=== PATIENT | female | born 1990 | race Caucasian/White ===

== ENCOUNTER 2019-05-26 16:21 | Emergency (ER) | payer BC ==
[2019-05-26 16:46] VITALS: BP 127/86
--- NOTE | 2019-05-26 16:49 | ER Document Report ---
ED Medical Screen (RME) - General Chief Complaint: Chest Pain Stated Complaint: CHEST PAIN/ARM/NECK PAIN Time Seen by Provider: 05/26/19 16:35 Notes: Patient is a 28-year-old female who presents to the emergency department with a chief complaint of chest pain. Patient states that her chest pain started 3 days ago. States that the pain is in the middle of her chest and it radiated down her left arm and into her neck. She has had this before and was told it was due to her anxiety. This is the first time her pain had radiated to her neck. Patient is currently on metoprolol. She states that this morning she woke up and her blood pressure was high. It was 155/109 and her heart rate was in the 160 as per patient's report. He is currently on metoprolol and clonazepam. Patient states that when she saw her blood pressure and heart rate was up, she ended up taking her metoprolol. She noticed that her weight was still high and then she ended up taking her clonazepam. Patient was also recently diagnosed with a urinary tract infection. She is currently on Augmentin. Denies any abdominal pain. Exam: Sinus rhythm on twelve-lead EKG. S1, S2. I have greeted and performed a rapid initial assessment of this patient. A comprehensive ED assessment and evaluation of the patient, analysis of test results and completion of medical decision making process will be conducted by an additional ED providers. - Related Data Allergies/Adverse Reactions: ciprofloxacin [From Cipro] Allergy (Verified 05/26/19 16:35) metoclopramide [From Reglan] Allergy (Verified 05/26/19 16:35) Sulfa (Sulfonamide Antibiotics) Allergy (Verified 05/26/19 16:35) Physical Exam - Vital signs Vitals: Temp Pulse Resp BP Pulse Ox 97.9 F 92 16 127/86 H 100 05/26/19 16:42 05/26/19 16:42 05/26/19 16:42 05/26/19 16:42 05/26/19 16:42 Course - Vital Signs Vital signs: Temp Pulse Resp BP Pulse Ox 97.9 F 92 16 127/86 H 100 05/26/19 16:42 05/26/19 16:42 05/26/19 16:42 05/26/19 16:42 05/26/19 16:42
--- NOTE | 2019-05-26 17:01 | RADIOLOGY REPORT (SQ) ---
EXAM DESCRIPTION: CHEST SINGLE VIEW COMPLETED DATE/TIME: 05/26/2019 4:53 pm REASON FOR STUDY: chest pain COMPARISON: None. EXAM PARAMETERS: NUMBER OF VIEWS: One view. TECHNIQUE: Single frontal radiographic view of the chest acquired. RADIATION DOSE: NA LIMITATIONS: None. FINDINGS: LUNGS AND PLEURA: No opacities, masses or pneumothorax. No pleural effusion. MEDIASTINUM AND HILAR STRUCTURES: No masses. Contour normal. HEART AND VASCULAR STRUCTURES: Heart normal in size. Normal vasculature. BONES: No acute findings. HARDWARE: None in the chest. OTHER: No other significant finding. IMPRESSION: NO ACUTE RADIOGRAPHIC FINDING IN THE CHEST. TECHNICAL DOCUMENTATION: JOB ID: [id number] [employer]- All Rights Reserved Reading location - IP/workstation name: [email or web address]
[2019-05-26 17:17] LABS: ABSOLUTE BASOPHILS # (AUTO) 0.1 10^3/uL (0.0-0.2); ABSOLUTE EOSINOPHILS # (AUTO) 0.1 10^3/uL (0.0-0.6); ABSOLUTE MONOCYTES (AUTO) 0.9 10^3/uL (0.1-1.4); ABSOLUTE NEUT (AUTO) 6.3 10^3/uL (1.7-8.2); BASOPHILS % (AUTO) 0.9 % (0-2); EOSINOPHILS % (AUTO) 0.6 % (0-6); HEMATOCRIT 41.3 % (36.0-47.0); HEMOGLOBIN 14.2 g/dL (12.0-15.5); LYMPHOCYTES % (AUTO) 21.1 % (13-45); MEAN CORPUSCULAR HEMOGLOBIN 31.2 pg (27.0-33.4); MEAN CORPUSCULAR HGB CONC 34.3 g/dL (32.0-36.0); MEAN CORPUSCULAR VOLUME 91 fl (80-97); MONOCYTES % (AUTO) 9.6 % (3-13); PLATELET COUNT 395 10^3/uL (150-450); RED BLOOD COUNT 4.54 10^6/uL (3.72-5.28); RED CELL DISTRIBUTION WIDTH 13.4 % (11.5-14.0); SEGMENTED NEUTROPHILS % (AUTO) 67.8 % (42-78); TOTAL CELLS COUNTED % (AUTO) 100 %; WHITE BLOOD COUNT 9.3 10^3/uL (4.0-10.5)
[2019-05-26 17:46] LABS: ALBUMIN 4.9 g/dL (3.5-5.0); ALKALINE PHOSPHATASE 63 U/L (38-126); ANION GAP 17 (5-19); ASPARTATE AMINO TRANSFERASE 25 U/L (14-36); BILIRUBIN,DIRECT 0.1 mg/dL (0.0-0.4); BILIRUBIN,TOTAL 0.7 mg/dL (0.2-1.3); BLOOD UREA NITROGEN 11 mg/dL (7-20); CALCIUM 9.7 mg/dL (8.4-10.2); CARBON DIOXIDE 21 mmol/L (22-30); CHLORIDE 100 mmol/L (98-107); CREATINE KINASE 372 U/L (30-135); GLUCOSE 101 mg/dL (75-110); POTASSIUM 4.2 mmol/L (3.6-5.0); TOTAL PROTEIN 8.7 g/dL (6.3-8.2)
[2019-05-26 18:09] LABS: APPEARANCE,URINE SLIGHTLY-CLOUDY; BILIRUBIN,URINE NEGATIVE (NEGATIVE); COLOR,URINE STRAW; GLUCOSE, URINE NEGATIVE (NEGATIVE); KETONES,URINE 20 mg/dL (NEGATIVE); LEUKOCYTE ESTERASE,URINE NEGATIVE (NEGATIVE); NITRITE,URINE NEGATIVE (NEGATIVE); PROTEIN,URINE NEGATIVE (NEGATIVE); URINE SPECIFIC GRAVITY 1.006; UROBILINOGEN,URINE NEGATIVE mg/dL (<2.0)
--- NOTE | 2019-05-26 18:22 | ER Document Report ---
ED General - General Chief Complaint: Chest Pain Stated Complaint: CHEST PAIN/ARM/NECK PAIN Time Seen by Provider: 05/26/19 16:35 Primary Care Provider: CHI STRICKLAND [Primary Care Provider] - Follow up as needed - HPI Notes: This is a 28-year-old female with a history of mitral valve prolapse which was diagnosed a little over a year ago in which is associated with occasional sharp anterior chest pain. Patient has been relatively free of symptoms for over 6 months and is taking clonazepam and also is on 25 mg of metoprolol twice a day. Within last several days she says some fleeting sharp pain in her left arm radiating into her left shoulder and neck lasting for a few seconds at a time. This is not associated with exertion. No associated diaphoresis, dyspnea, nausea or vomiting. Patient was completely worked up within the last year by a harness tier at [facility] Dr. Carmela Crum who did an echocardiogram and a full evaluation. She is advised the patient that she has minimal mitral prolapse with no evidence of more serious cardiac disease and suggest symptomatic management only. Patient is a non-smoker. She denies any use of cocaine. She has no history of hyperlipidemia, hypertension or diabetes mellitus. 2 elderly family members are known to have coronary disease. HEART Score: HISTORY 0 ECG 0 AGE 0 RISK FACTORS 1 TROPONIN 0 TOTAL: 1 If HEART score is = 3 AND both tronponin measurments are normal, the 30 day risk of a major adverse cardiac event (all-cause mortality, myocardia infarction or need for coronary revscularization) is < 1% (Sensitivity 100%, NPV 100%). - Related Data Allergies/Adverse Reactions: ciprofloxacin [From Cipro] Allergy (Verified 05/26/19 16:35) metoclopramide [From Reglan] Allergy (Verified 05/26/19 16:35) Sulfa (Sulfonamide Antibiotics) Allergy (Verified 05/26/19 16:35) Past Medical History - General Information source: Patient - Social History Smoking Status: Never Smoker Family History: Reviewed & Not Pertinent Patient has suicidal ideation: No Patient has homicidal ideation: No - Past Medical History Cardiac Medical History: Reports: Other - Mitral valve prolapse Review of Systems - Review of Systems Notes: Constitutional: Negative for fever. HENT: Negative for sore throat. Eyes: Negative for visual changes. Cardiovascular: As per HPI. Respiratory: Negative for shortness of breath. Gastrointestinal: Negative for abdominal pain, vomiting or diarrhea. Genitourinary: Negative for dysuria. Musculoskeletal: Negative for back pain. Skin: Negative for rash. Neurological: Negative for headaches, weakness or numbness. 10 point ROS negative except as marked above and in HPI. Physical Exam - Vital signs Vitals: Temp Pulse Resp BP Pulse Ox 97.9 F 92 16 127/86 H 100 05/26/19 16:42 05/26/19 16:42 05/26/19 16:42 05/26/19 16:42 05/26/19 16:42 Notes: GENERAL: Slender female patient approximately stated age appearing in no acute distress. SKIN: Good turgor no rashes. HEAD: Normocephalic atraumatic. EYES: PERRLA. Conjunctivae and sclerae clear. EARS: CANALS AND TMS CLEAR. NOSE: CLEAR. MOUTH: Moist mucosa. Good dentition. No stridor or edema. No drooling. NECK: Supple. No masses or thyromegaly. No adenopathy. Carotids 2+ without bruits. No JVD. BACK: Symmetrical without tenderness. CHEST: Respirations unlabored. Breath sounds clear and symmetrical. HEART: Regular rhythm. No murmur gallop or rub. ABDOMEN: Soft nontender without masses, organomegaly or rebound. Bowel sounds normally active. No bruits. GENITALIA: Deferred. EXTREMITIES: No edema. No calf tenderness. Cap refill less than 1.5 seconds. Dorsalis pedis and posterior tibial pulses 3+ and symmetrical. NEUROLOGICAL: GCS 15. Alert and oriented x3. Normal gait. Fluent speech. Cranial nerves II through XII intact. Sensorimotor and cerebellar normal. Normal tone. Course - Re-evaluation Re-evalutation: Normal troponin level here. Normal chest x-ray. Normal exam. EKG shows no acute changes. Patient has had a full cardiac work-up within the last 1 year and is known to have mitral prolapse which is being treated appropriately with medication and she is being followed by harness tier Dr. Carmela Crum. Patient is been reassured today is encouraged to follow-up with Dr. Crum. 05/26/19 18:58 - Vital Signs Vital signs: Temp Pulse Resp BP Pulse Ox 97.9 F 92 16 127/86 H 100 05/26/19 16:42 05/26/19 16:42 05/26/19 16:42 05/26/19 16:42 05/26/19 16:42 - Laboratory Result Diagrams: 05/26/19 16:55 05/26/19 16:55 Laboratory results interpreted by me: 05/26/19 05/26/19 16:55 17:40 Carbon Dioxide 21 L Creatine Kinase 372 H Total Protein 8.7 H Urine Ketones 20 H - EKG Interpretation by Me EKG shows normal: Sinus rhythm Rate: Normal Rhythm: NSR - Normal tracing Discharge - Discharge Clinical Impression: Mitral valve prolapse Chest pain Qualifiers: Chest pain type: unspecified Qualified Code(s): R07.9 - Chest pain, unspecified Condition: Stable Disposition: HOME, SELF-CARE Additional Instructions: Mitral Valve Prolapse Mitral valve prolapse is very common, affecting about 1 in 25 people. The mitral valve controls blood flow between the left atrium (upper chamber) and left ventricle of the heart. In mitral prolapse, the valve bulges back into the atrium when the ventricle contracts. Usually, mitral valve prolapse causes no symptoms, and requires no treatment. But some people with mitral prolapse have chest pain, palpitations, lightheadedness, or fatigue. In many of these cases, it's not really clear if the mitral prolapse is causing these symptoms. Mitral prolapse is diagnosed by an echocardiogram. If mitral prolapse is severe, or accompanied by mitral regurgitation (backflow of blood), the valve can be prone to infection. Infection of a heart valve is called endocarditis. The infection can start during dental or surgical procedures. Most patients with significant mitral prolapse should take antibiotics before procedures. If mitral prolapse is causing symptoms, medication can be prescribed. Most patients do not need any treatment at all. Call the doctor or return if you develop persistent palpitation, severe chest pain, fainting or severe dizziness, or any other significant change in your health. Return here as needed for new or worsening symptoms. Follow-up with Dr. Carmela Crum (cardiology). Continue your current medications as previously instructed. Referrals: CHI STRICKLAND [Primary Care Provider] - Follow up as needed
[2019-05-26 18:25] LABS: URINE AMPHETAMINES SCREEN NEGATIVE; URINE BARBITURATES SCREEN NEGATIVE; URINE BENZODIAZEPINES SCREEN NEGATIVE; URINE COCAINE SCREEN NEGATIVE; URINE MARIJUANA (THC) SCREEN NEGATIVE; URINE METHADONE SCREEN NEGATIVE; URINE PHENCYCLIDINE SCREEN NEGATIVE
--- NOTE | 2019-05-26 22:40 | EKG REPORT ---
SEVERITY:- NORMAL ECG - SINUS RHYTHM : Confirmed by: Bimal Allison MD 26-May-2019 22:39:48
== END 2019-05-26 19:08 | disposition home or self-care (01) ==
LOC: ER 16:21
DX: R07.9 Chest pain, unspecified (principal); I34.1 Nonrheumatic mitral (valve) prolapse; M79.602 Pain in left arm; Z79.899 Other long term (current) drug therapy; Z82.49 Family history of ischemic heart disease and other diseases of the circulatory system; Z88.1 Allergy status to other antibiotic agents; Z88.8 Allergy status to other drugs, medicaments and biological substances; Z88.2 Allergy status to sulfonamides
CPT/HCPCS: 36415; 71045; 80053; 80307; 81001; 81025; 82550; 84484; 85025; 85379; 93005; 93010; 99285

== ENCOUNTER 2019-08-22 16:04 | Emergency (ER) | payer BC, OTHER ==
--- NOTE | 2019-08-22 16:33 | ER Document Report ---
ED Medical Screen (RME) - General Chief Complaint: Chest Pain Stated Complaint: CHEST PAIN Time Seen by Provider: 08/22/19 16:29 Primary Care Provider: CHI STRICKLAND [Primary Care Provider] - Follow up as needed Notes: 28-year-old female with history of tachycardia presents for chest tightness with radiation into her shoulder for the past 3 days. Associated dyspnea. Lungs clear to auscultation bilaterally. Mild tachycardia. Patient states she flew to [place] a couple weeks ago. Denies control use, personal history of cancer, recent hospitalizations, recent surgeries. I have greeted and performed a rapid initial assessment of this patient. A comprehensive ED assessment and evaluation of the patient, analysis of test results and completion of the medical decision making process with be conducted by additional ED providers. TRAVEL OUTSIDE OF THE [place] IN LAST 30 DAYS: No - Related Data Allergies/Adverse Reactions: ciprofloxacin [From Cipro] Allergy (Verified 08/22/19 16:25) metoclopramide [From Reglan] Allergy (Verified 08/22/19 16:25) Sulfa (Sulfonamide Antibiotics) Allergy (Verified 08/22/19 16:25) Past Medical History - Social History Chew tobacco use (# tins/day): No Frequency of alcohol use: None Drug Abuse: None Physical Exam - Vital signs Vitals: Temp Pulse Resp BP Pulse Ox 98.4 F 115 H 18 140/82 H 100 08/22/19 16:15 08/22/19 16:15 08/22/19 16:15 08/22/19 16:15 08/22/19 16:15 Course - Vital Signs Vital signs: Temp Pulse Resp BP Pulse Ox 98.4 F 115 H 18 140/82 H 100 08/22/19 16:15 08/22/19 16:15 08/22/19 16:15 08/22/19 16:15 08/22/19 16:15 Doctor's Discharge - Discharge Referrals: CHI STRICKLAND [Primary Care Provider] - Follow up as needed
[2019-08-22 17:02] LABS: ABSOLUTE EOSINOPHILS # (AUTO) 0.1 10^3/uL (0.0-0.6); ABSOLUTE LYMPHOCYTES (AUTO) 2.4 10^3/uL (0.5-4.7); ABSOLUTE MONOCYTES (AUTO) 0.9 10^3/uL (0.1-1.4); ABSOLUTE NEUT (AUTO) 6.5 10^3/uL (1.7-8.2); BASOPHILS % (AUTO) 0.5 % (0-2); EOSINOPHILS % (AUTO) 0.7 % (0-6); HEMATOCRIT 43.4 % (36.0-47.0); HEMOGLOBIN 14.7 g/dL (12.0-15.5); LYMPHOCYTES % (AUTO) 24.4 % (13-45); MEAN CORPUSCULAR HGB CONC 33.8 g/dL (32.0-36.0); MEAN CORPUSCULAR VOLUME 92 fl (80-97); MONOCYTES % (AUTO) 9.3 % (3-13); RED BLOOD COUNT 4.75 10^6/uL (3.72-5.28); SEGMENTED NEUTROPHILS % (AUTO) 65.1 % (42-78); TOTAL CELLS COUNTED % (AUTO) 100 %
[2019-08-22 17:08] LABS: APPEARANCE,URINE SLIGHTLY-CLOUDY; BILIRUBIN,URINE NEGATIVE (NEGATIVE); COLOR,URINE YELLOW; GLUCOSE, URINE NEGATIVE (NEGATIVE); KETONES,URINE 20 mg/dL (NEGATIVE); PROTEIN,URINE NEGATIVE (NEGATIVE); URINE SPECIFIC GRAVITY 1.024; UROBILINOGEN,URINE NEGATIVE mg/dL (<2.0)
[2019-08-22 17:17] LABS: ALBUMIN 5.1 g/dL (3.5-5.0); ALKALINE PHOSPHATASE 61 U/L (38-126); ANION GAP 15 (5-19); ASPARTATE AMINO TRANSFERASE 20 U/L (14-36); BILIRUBIN,DIRECT 0.2 mg/dL (0.0-0.4); BILIRUBIN,TOTAL 1.2 mg/dL (0.2-1.3); BLOOD UREA NITROGEN 12 mg/dL (7-20); CALCIUM 9.6 mg/dL (8.4-10.2); CARBON DIOXIDE 23 mmol/L (22-30); CHLORIDE 101 mmol/L (98-107); GLUCOSE 82 mg/dL (75-110); POTASSIUM 3.7 mmol/L (3.6-5.0); TOTAL PROTEIN 8.8 g/dL (6.3-8.2)
--- NOTE | 2019-08-22 17:25 | RADIOLOGY REPORT (SQ) ---
EXAM DESCRIPTION: CHEST 2 VIEWS COMPLETED DATE/TIME: 08/22/2019 5:15 pm REASON FOR STUDY: CHEST PAIN COMPARISON: 05/26/2019 TECHNIQUE: Frontal and lateral radiographic views of the chest acquired. NUMBER OF VIEWS: Two view. LIMITATIONS: None. FINDINGS: LUNGS AND PLEURA: No pneumothorax. No consolidation or pleural effusion. MEDIASTINUM AND HILAR STRUCTURES: Stable. HEART AND VASCULAR STRUCTURES: Stable. BONES: No acute findings. HARDWARE: None in the chest. OTHER: No other significant finding. IMPRESSION: NO ACUTE FINDINGS. TECHNICAL DOCUMENTATION: JOB ID: [id number] [id number] 2010 [employer]- All Rights Reserved Reading location - IP/workstation name: [email or web address]
[2019-08-22 17:46] LABS: PLATELET COUNT 252 10^3/uL (150-450)
--- NOTE | 2019-08-22 18:57 | ER Document Report ---
ED General - General Chief Complaint: Chest Pain Stated Complaint: CHEST PAIN Time Seen by Provider: 08/22/19 16:29 Primary Care Provider: CHI STRICKLAND [NO LOCAL MD] - Follow up as needed TRAVEL OUTSIDE OF THE [place] IN LAST 30 DAYS: No - HPI Notes: This is a 28-year-old female with a history of mitral valve prolapse which was diagnosed a little over a year ago in which is associated with occasional sharp anterior chest pain. Patient has been relatively free of symptoms for over 6 months and is taking clonazepam and also is on 25 mg of metoprolol twice a day. Within last several days she says some fleeting sharp pain in her left arm radiating into her left shoulder and neck lasting for a few seconds at a time. This is not associated with exertion. No associated diaphoresis, dyspnea, nausea or vomiting. Patient was completely worked up within the last year by a engineer technical staff at [facility] Dr. Carmela Crum who did an echocardiogram and a full evaluation. She is advised the patient that she has minimal mitral prolapse with no evidence of more serious cardiac disease and suggest symptomatic management only. Patient is a non-smoker. She denies any use of cocaine. She has no history of hyperlipidemia, hypertension or diabetes mellitus. 2 elderly family members are known to have coronary disease. Patient is currently taking metoprolol extended release 25 mg twice daily HEART Score: HISTORY 0 ECG 0 AGE 0 RISK FACTORS 1 TROPONIN 0 TOTAL: 1 If HEART score is = 3 AND both tronponin measurments are normal, the 30 day ris k of a major adverse cardiac event (all-cause mortality, myocardia infarction or need for coronary revscularization) is < 1% (Sensitivity 100%, NPV 100%). - Related Data Allergies/Adverse Reactions: ciprofloxacin [From Cipro] Allergy (Verified 08/22/19 16:25) metoclopramide [From Reglan] Allergy (Verified 08/22/19 16:25) Sulfa (Sulfonamide Antibiotics) Allergy (Verified 08/22/19 16:25) Past Medical History - General Information source: Patient - Social History Smoking Status: Never Smoker Chew tobacco use (# tins/day): No Frequency of alcohol use: None Drug Abuse: None Family History: Reviewed & Not Pertinent Patient has suicidal ideation: No Patient has homicidal ideation: No Review of Systems - Review of Systems Notes: Constitutional: Negative for fever. HENT: Negative for sore throat. Eyes: Negative for visual changes. Cardiovascular: As per HPI Respiratory: Negative for shortness of breath. Gastrointestinal: Negative for abdominal pain, vomiting or diarrhea. Genitourinary: Negative for dysuria. Musculoskeletal: Negative for back pain. Skin: Negative for rash. Neurological: Negative for headaches, weakness or numbness. 10 point ROS negative except as marked above and in HPI. Physical Exam - Vital signs Vitals: Temp Pulse Resp BP Pulse Ox 98.4 F 115 H 18 140/82 H 100 08/22/19 16:15 08/22/19 16:15 08/22/19 16:15 08/22/19 16:15 08/22/19 16:15 - Notes Notes: GENERAL: Well-developed well-nourished appearing in no acute distress. SKIN: Good turgor no rashes. HEAD: Normocephalic atraumatic. EYES: PERRLA. EOMI. Conjunctivae and sclerae clear. EARS: CANALS AND TMS CLEAR. NOSE: CLEAR. MOUTH: Moist mucosa. Good dentition. No stridor or edema. No drooling. NECK: Supple. No masses or thyromegaly. No adenopathy. Carotids 2+ without bruits. No JVD. BACK: Symmetrical without tenderness. CHEST: Respirations unlabored. Breath sounds clear and symmetrical. HEART: Regular rhythm. No murmur gallop or rub. ABDOMEN: Soft nontender without masses, organomegaly or rebound. Bowel sounds normally active. No bruits. GENITALIA: Deferred. EXTREMITIES: No edema. No calf tenderness. Cap refill less than 1.5 seconds. Dorsalis pedis and posterior tibial pulses 3+ and symmetrical. NEUROLOGICAL: GCS 15. Alert and oriented x3. Normal gait. Fluent speech. Cranial nerves II through XII intact. Sensorimotor and cerebellar normal. Normal tone. PSYCHIATRIC: Appropriate affect. Course - Re-evaluation Re-evalutation: 08/22/19 18:55 Troponin is normal. Urine drug screen negative. CBC and comprehensive metabolic profile normal. EKG shows sinus tachycardia with a rate of 106 and is otherwise unchanged from baseline I know this patient well from prior work-up in May with similar presentation. She has an established history of mitral prolapse has been extensively worked up by cardiology with no evidence of structural heart disease otherwise. She went back and saw her engineer technical staff Dr. Carmela Crum at [facility] cardiology per my recommendation after her last visit. They increased her metoprolol slightly at that time. They had no other specific recommendations. I think the patient clearly has room for titration of the beta-suzanna and I will ask her to increase her dose further at this point and follow-up with cardiology. She may of course return here for new or worsening symptoms as necessary. Patient expresses full understanding of my current assessment and recommendations. - Vital Signs Vital signs: Temp Pulse Resp BP Pulse Ox 98.4 F 115 H 18 140/82 H 100 08/22/19 16:15 08/22/19 16:15 08/22/19 16:15 08/22/19 16:15 08/22/19 16:15 - Laboratory Result Diagrams: 08/22/19 16:36 08/22/19 16:36 Laboratory results interpreted by me: 08/22/19 08/22/19 16:36 16:36 Creatinine 0.47 L Total Protein 8.8 H Albumin 5.1 H Urine Ketones 20 H Discharge - Discharge Clinical Impression: Palpitations, Mitral valve prolapse Condition: Stable Disposition: HOME, SELF-CARE Additional Instructions: Return here as needed for new or worsening symptoms: Pain that is worsening or unimproved Uncontrolled vomiting High fever or shaking chills Overall worsening Follow-up with Dr. Carmela Crum (cardiology) as previously instructed. Increase your metoprolol dosage: 25 mg each morning 50 mg each evening Referrals: LOCAL,NO [NO LOCAL MD] - Follow up as needed
[2019-08-22 19:22] VITALS: BP 110/74
--- NOTE | 2019-08-22 20:33 | EKG REPORT ---
SEVERITY:- ABNORMAL ECG - SINUS TACHYCARDIA Diffuse nonspecific ST-T changes. : Confirmed by: Bimal Allison MD 22-Aug-2019 20:32:25
== END 2019-08-22 19:23 | disposition home or self-care (01) ==
LOC: ER 16:04
DX: I34.1 Nonrheumatic mitral (valve) prolapse (principal); R00.2 Palpitations; R00.0 Tachycardia, unspecified; R07.9 Chest pain, unspecified; M79.602 Pain in left arm; Z79.899 Other long term (current) drug therapy; Z88.1 Allergy status to other antibiotic agents; Z88.8 Allergy status to other drugs, medicaments and biological substances; Z88.2 Allergy status to sulfonamides
CPT/HCPCS: 36415; 71046; 80053; 81001; 84484; 84703; 85025; 93005; 93010; 99285

== ENCOUNTER 2020-02-10 23:32 | Outpatient (CLI) | payer OTHER ==
[2020-02-10 23:56] LABS: APPEARANCE,URINE CLEAR; BILIRUBIN,URINE NEGATIVE (NEGATIVE); COLOR,URINE STRAW; GLUCOSE, URINE NEGATIVE (NEGATIVE); KETONES,URINE NEGATIVE (NEGATIVE); LEUKOCYTE ESTERASE,URINE TRACE (NEGATIVE); NITRITE,URINE NEGATIVE (NEGATIVE); PROTEIN,URINE NEGATIVE (NEGATIVE); URINE SPECIFIC GRAVITY 1.004; UROBILINOGEN,URINE NEGATIVE mg/dL (<2.0)
[2020-02-11 00:09] LABS: URINE AMPHETAMINES SCREEN NEGATIVE; URINE BARBITURATES SCREEN NEGATIVE; URINE BENZODIAZEPINES SCREEN NEGATIVE; URINE COCAINE SCREEN NEGATIVE; URINE MARIJUANA (THC) SCREEN NEGATIVE; URINE METHADONE SCREEN NEGATIVE; URINE PHENCYCLIDINE SCREEN NEGATIVE
== END 2020-02-11 00:45 | disposition home or self-care (01) ==
LOC: LC 23:32
PROVIDERS: ATTEND Obstetrics & Gynecology
DX: Z04.3 Encounter for examination and observation following other accident (principal); Z3A.21 21 weeks gestation of pregnancy; W01.0XXA Fall on same level from slipping, tripping and stumbling without subsequent striking against object, initial encounter; Z88.1 Allergy status to other antibiotic agents
CPT/HCPCS: 80307; 81001

== ENCOUNTER 2020-02-21 02:55 | Emergency (ER) | payer OTHER ==
[2020-02-21 03:39] LABS: ABSOLUTE EOSINOPHILS # (AUTO) 0.1 10^3/uL (0.0-0.6); ABSOLUTE LYMPHOCYTES (AUTO) 1.6 10^3/uL (0.5-4.7); ABSOLUTE MONOCYTES (AUTO) 1.5 10^3/uL (0.1-1.4); ABSOLUTE NEUT (AUTO) 15.3 10^3/uL (1.7-8.2); BASOPHILS % (AUTO) 0.1 % (0-2); EOSINOPHILS % (AUTO) 0.5 % (0-6); HEMOGLOBIN 10.4 g/dL (12.0-15.5); LYMPHOCYTES % (AUTO) 8.7 % (13-45); MEAN CORPUSCULAR HEMOGLOBIN 31.6 pg (27.0-33.4); MEAN CORPUSCULAR HGB CONC 34.6 g/dL (32.0-36.0); MEAN CORPUSCULAR VOLUME 92 fl (80-97); MONOCYTES % (AUTO) 7.9 % (3-13); PLATELET COUNT 222 10^3/uL (150-450); RED BLOOD COUNT 3.28 10^6/uL (3.72-5.28); RED CELL DISTRIBUTION WIDTH 12.9 % (11.5-14.0); SEGMENTED NEUTROPHILS % (AUTO) 82.8 % (42-78); TOTAL CELLS COUNTED % (AUTO) 100 %; WHITE BLOOD COUNT 18.5 10^3/uL (4.0-10.5)
[2020-02-21 03:41] LABS: APPEARANCE,URINE SLIGHTLY-CLOUDY; BILIRUBIN,URINE NEGATIVE (NEGATIVE); COLOR,URINE YELLOW; GLUCOSE, URINE NEGATIVE (NEGATIVE); KETONES,URINE 20 mg/dL (NEGATIVE); LEUKOCYTE ESTERASE,URINE SMALL (NEGATIVE); NITRITE,URINE NEGATIVE (NEGATIVE); PROTEIN,URINE NEGATIVE (NEGATIVE); URINE SPECIFIC GRAVITY 1.019; UROBILINOGEN,URINE NEGATIVE mg/dL (<2.0)
[2020-02-21] MEDS ORDERED: ONDANSETRON HCL INJ/PF 4 MG/2 ML SDV IV ONE (03:44)
[2020-02-21] MEDS ORDERED: FENTANYL CITRATE INJ/PF 100 MCG/2 ML AMPUL IV ONE (03:44)
[2020-02-21 03:55] LABS: ALBUMIN 3.7 g/dL (3.5-5.0); ALKALINE PHOSPHATASE 67 U/L (38-126); ANION GAP 9 (5-19); ASPARTATE AMINO TRANSFERASE 23 U/L (14-36); BILIRUBIN,TOTAL 0.3 mg/dL (0.2-1.3); BLOOD UREA NITROGEN 12 mg/dL (7-20); CALCIUM 8.7 mg/dL (8.4-10.2); CARBON DIOXIDE 22 mmol/L (22-30); CHLORIDE 104 mmol/L (98-107); GLUCOSE 102 mg/dL (75-110); POTASSIUM 3.5 mmol/L (3.6-5.0); TOTAL PROTEIN 6.8 g/dL (6.3-8.2)
--- NOTE | 2020-02-21 03:59 | ER Document Report ---
ED GI/ - General Chief Complaint: Flank Pain Stated Complaint: FLANK PAIN,VOMITING,NAUSEA Time Seen by Provider: 02/21/20 03:37 Primary Care Provider: RICHIE WATSON DO [Primary Care Provider] - Follow up as needed Notes: CHIEF COMPLAINT: Left flank pain HPI: 29-year-old female who is 25 weeks gestation presenting for left flank pain tonight with nausea. Patient states she has passed 11 kidney stones in the past this feels similar. Patient began having dysuria 4 days ago, went to an urgent care today and was started on Macrobid. Patient states pain began this afternoon and progressively worsened. Did not call her SENIOR JAVA UI DEVELOPER prior to coming to the emergency department today ROS: See HPI - all other systems were reviewed and are otherwise negative Constitutional: no fever Eyes: no drainage, no blurred vision ENT: no runny nose, no sore throat Cardiovascular: no chest pain Resp: no SOB, no cough GI: no vomiting, no diarrhea, + abdominal pain, positive nausea : Positive dysuria Integumentary: no rash Allergy: no hives Musculoskeletal: no extremity pain or swelling Neurological: no numbness/tingling, no weakness MEDICATIONS: I agree with the patient medications as charted by the RN. ALLERGIES: I agree with the allergies as charted by the RN. PAST MEDICAL HISTORY/PAST SURGICAL HISTORY: Reviewed and agree as charted by RN. SOCIAL HISTORY: Reviewed and agree as charted by RN. FAMILY HISTORY: No significant familial comorbid conditions directly related to patient complaint EXAM: Reviewed vital signs as charted by RN. CONSTITUTIONAL: Alert and oriented and responds appropriately to questions. Well-appearing; well-nourished HEAD: Normocephalic; atraumatic EYES: PERRL; Conjunctivae clear, sclerae non-icteric ENT: normal nose; no rhinorrhea; moist mucous membranes; pharynx without lesions noted, no uvula edema or deviation, no tonsillar hypertrophy, phonation normal NECK: Supple without meningismus; non-tender; no cervical lymphadenopathy, no masses CARD: RRR; no murmurs, no clicks, no rubs, no gallops; symmetric distal pulses RESP: Normal chest excursion without splinting or tachypnea; breath sounds clear and equal bilaterally; no wheezes, no rhonchi, no rales, pulse oximetry 98% on room air not hypoxic ABD/GI: Normal bowel sounds; non-distended; soft, mild tenderness to the left lateral flank on palpation, no rebound, no guarding; gravid uterus palpable and nontender BACK: The back appears normal and is non-tender to palpation, there is mild left CVA tenderness EXT: Normal ROM in all joints; non-tender to palpation; no cyanosis, no effusions, no edema SKIN: Normal color for age and race; warm; dry; good turgor; no acute lesions noted NEURO: Moves all extremities equally; Motor and sensory function intact PSYCH: The patient's mood and manner are appropriate. Grooming and personal hygiene are appropriate. MDM: 29-year-old female 25 weeks left flank pain with kidney stone history will obtain renal ultrasound for hydronephrosis given the . Started on Macrobid today for dysuria. Awaiting lab work and urinalysis. Patient is on clonazepam 3 mg daily for the last 3 to 4 years for anxiety issues. Will give low-dose fentanyl for pain TRAVEL OUTSIDE OF THE [place] IN LAST 30 DAYS: No - Related Data Allergies/Adverse Reactions: ciprofloxacin [From Cipro] Allergy (Verified 02/10/20 23:43) metoclopramide [From Reglan] Allergy (Verified 02/10/20 23:43) Sulfa (Sulfonamide Antibiotics) Allergy (Verified 02/10/20 23:43) Home Medications: macrobid. clanazepam. metoprolol Past Medical History - Social History Smoking Status: Never Smoker Chew tobacco use (# tins/day): No Frequency of alcohol use: None Drug Abuse: None Family History: Reviewed & Not Pertinent Renal/ Medical History: Reports: Hx Kidney Stones Past Surgical History: Reports: Hx Oral Surgery Physical Exam - Vital signs Vitals: Temp Pulse Resp BP Pulse Ox 97.9 F 93 20 116/71 100 02/21/20 03:00 02/21/20 03:00 02/21/20 03:00 02/21/20 03:00 02/21/20 03:00 Course - Re-evaluation Re-evalutation: 02/21/20 06:11 Patient is much more comfortable at this time. CT imaging does not show any ab normalities with the , renal ultrasound does not show evidence of hydronephrosis or definitive stone. Urine otherwise clear. Will send to L&D to have monitoring performed given her continued mild discomfort and no definitive results on her ultrasounds. I do suspect that she is likely passing a small stone given her history - Vital Signs Vital signs: Temp Pulse Resp BP Pulse Ox 97.9 F 93 20 116/71 100 02/21/20 03:00 02/21/20 03:00 02/21/20 03:00 02/21/20 03:00 02/21/20 03:00 - Laboratory Result Diagrams: 02/21/20 03:20 02/21/20 03:20 Laboratory results interpreted by me: 02/21/20 02/21/20 02/21/20 03:20 03:20 03:20 WBC 18.5 H RBC 3.28 L Hgb 10.4 L Hct 30.0 L Lymph % (Auto) 8.7 L Absolute Neuts (auto) 15.3 H Absolute Monos (auto) 1.5 H Seg Neutrophils % 82.8 H Sodium 134.6 L Potassium 3.5 L Urine Ketones 20 H Ur Leukocyte Esterase SMALL H Urine Ascorbic Acid 40 H Discharge - Discharge Clinical Impression: Acute left flank pain Qualifiers: Weeks of gestation: 25 weeks Qualified Code(s): Z3A.25 - 25 weeks gestation of Condition: Stable Disposition: LABOR CHECK Additional Instructions: Follow-up with your SENIOR JAVA UI DEVELOPER for further evaluation and management of your flank pain. It is certainly possible that you are passing a small kidney stone although the urine does not show definitive evidence of large amounts of blood or significant infection. Finish the Macrobid you were previously prescribed. Take Tylenol consistently for pain. Return for worsening symptoms Referrals: RICHIE WATSON DO [Primary Care Provider] - Follow up as needed
--- NOTE | 2020-02-21 05:50 | RADIOLOGY REPORT (SQ) ---
EXAM DESCRIPTION: US RETROPERITONEUM COMPLETED DATE/TME: 02/21/2020 03:38 CLINICAL HISTORY: 29 years, Female, left flank pain, r/o kidney stone, 25 week preg COMPARISON: None. TECHNIQUE: Grayscale and Doppler sonogram of the kidneys. Grayscale and Doppler sonogram of the urinary bladder. LIMITATIONS: None. FINDINGS: Right kidney: Length: 11.7 x 5.0 x 4.7 cm. Hydronephrosis: Negative. Echogenicity: Within normal limits. Other: There is a 1.0 x 0.8 x 1.1 cm nonshadowing echogenic area, likely representing macroscopic fat of likely of no clinical significance. No shadowing stone identified. Left kidney: Length: 12.8 x 6.4 x 6.9 cm. Hydronephrosis: Negative. Echogenicity: Within normal limits. Other: No shadowing stone identified. Urinary bladder: Lumen: Unremarkable. Ureteral jets: Not visualized bilaterally. Other: None. IMPRESSION: No evidence of hydronephrosis or urolithiasis. copyright 2010 [employer]- All Rights Reserved
--- NOTE | 2020-02-21 05:55 | RADIOLOGY REPORT (SQ) ---
COMPLETED DATE/TME: 02/21/2020 03:39 CLINICAL HISTORY: 29 years, Female, flank pain EXAM: / Ultrasound. TECHNIQUE: Grayscale and doppler evaluation of the fetus. Transabdominal technique was utilized. Exam was performed by an interventional radiology technologist, and static images were submitted for review. Note: JERONIMO=amniotic fluid index. BPD=biparietal diameter. HC=head circumference. AC=abdominal circumference. FL=femur length. CI=cephalic index. EFW=estimated weight. LMP=last menstrual period. MA=mean gestational age. FATEMEH=estimated date of delivery. COMPARISON: None. FINDINGS: Maternal: Ovaries: Obscured by gravid maternal uterus. Cervix: Closed and approximately 3.5 cm in length. : Number: Dominguez. Status: Live . Presentation: Cephalic. Heart rate: 147 bpm. JERONIMO: 21.6 cm. Placenta: Position: Posterior. Complications: No previa or abruptio. Morphology: Spine: Identified. Stomach: Identified. Bladder: Identified. Kidneys: Identified. Biometry: BPD: 6.43 cm = 26 weeks 0 days. HC: 23.94 cm = 26 weeks 0 days. AC: 22.17 cm = 26 weeks 4 days. FL: 4.81 cm = 26 weeks 1 days. Ratios (%): FL/AC: 21.7 (20-24). FL/BPD: 74.8 (71-87). HC/AC: 1.08 (1.04-1.22). CI: 79.7 (70-86). EFW = 923 grams. 55%ile by Hadlock. (Please note that an incorrect LMP could make the percentile value inaccurate.) Clinical: LMP: 08/25/2019. MA: 25 weeks five days. FATEMEH: 05/31/2020. Ultrasound: MA: 26 weeks one day. FATEMEH: 05/28/2020. IMPRESSION: 1. Single live intrauterine , as above.
[2020-02-21 06:22] VITALS: BP 120/73
== END 2020-02-21 06:21 | disposition admitted as inpatient to this hospital (09) ==
LOC: ER 02:55
DX: O26.892 Other specified pregnancy related conditions, second trimester (principal); R10.9 Unspecified abdominal pain; O21.9 Vomiting of pregnancy, unspecified; Z3A.25 25 weeks gestation of pregnancy; Z88.2 Allergy status to sulfonamides; Z88.1 Allergy status to other antibiotic agents; Z88.8 Allergy status to other drugs, medicaments and biological substances; Z79.899 Other long term (current) drug therapy
CPT/HCPCS: 99285; 96374; 96375; 36415; 83690; 85025; 80053; 81001; 76770; 76805; J3010; J2405

== ENCOUNTER 2020-05-31 11:41 | Inpatient (IN) | payer OTHER ==
[2020-05-31] MEDS ORDERED: RINGERS SOLUTION,LACTATED 1,000 ML IV PRN (14:20)
--- NOTE | 2020-05-31 14:29 | RADIOLOGY REPORT (SQ) ---
EXAM DESCRIPTION: U/S PROFILE W/O STRESS IMAGES COMPLETED DATE/TIME: 05/31/2020 1:33 pm REASON FOR STUDY: NR NST in office, baby too active to monitor COMPARISON: None. TECHNIQUE: Limited palmer-scale realtime and static images of the fetus to measure specified parameter s. LIMITATIONS: None. FINDINGS: HEART RATE: 136 beats per minute. JERONIMO: 1.3 cm. MVP: 5.5 x 7.9 cm. BREATHING MOVEMENT: 2 points. MOVEMENT: 2 points. POSTURE AND TONE: 2 points. QUALITATIVE JERONIMO: 2 points. OTHER: Posterior placenta. Vertex presentation. IMPRESSION: BIOPHYSICAL PROFILE: 02/12. Trimester of : Third - 28 weeks to delivery COMMENT: BREATHING MOVEMENTS: 2 POINTS: PRESENT 0 POINTS: ABSENT MOTION: 2 POINTS: PRESENT 0 POINTS: ABSENT TONE: 2 POINTS: PRESENT 0 POINTS: ABSENT AMNIOTIC FLUID VOLUME: 2 POINTS: LARGEST POCKET GREATER THAN 2 CM DEPTH. 0 POINTS: NO POCKET OF 2 CM. TECHNICAL DOCUMENTATION: JOB ID: [id number] 2010 [employer]- All Rights Reserved Reading location - IP/workstation name: [email or web address]
[2020-05-31] MEDS ORDERED: DINOPROSTONE 10 MG VAGINAL INSERT.SR ONE (14:50)
[2020-05-31] MEDS: CLONAZEPAM 1 MG TABLET PO SCH ×2 (14:59→22:01)
[2020-05-31] MEDS ORDERED: FLUCONAZOLE 100 MG TABLET PO ONE (15:11)
[2020-05-31] MEDS ORDERED: DINOPROSTONE 10 MG VAGINAL INSERT.SR PV PRN (15:12)
--- NOTE | 2020-05-31 15:13 | Admission Physical ---
Datetime Report Generated by CPN: 05/31/2020 15:12 CURRENT ADMISSION Chief Complaint: Sent from OB Office for Evaluation and Treatment - Please Specify Chief Complaint Other: sent for repeat NST Indication for Induction: Indicated by Testing Indication for Induction- Other: NRFHT Admit Impression : Term, Intrauterine ; No Active Labor Admit Plan: Admit to Unit; Initiate Labor Induction Protocol ALLERGIES Medication Allergies: Yes Medication Allergies: Sulfa (Sulfonamide Antibiotics) (02/10/2020); ciprofloxacin (02/10/2020); metoclopramide (02/10/2020) Latex: No Latex Allergies OBSTETRICAL HISTORY EDC: 05/31/2020 00:00 : 2 Para: 0 Term: 0 : 0 SAB: 1 IAB: 0 Livin PHYSICAL EXAM General: Normal HEENT: Normal Neurologic: Normal Thyroid: Deferred Heart: Normal Lungs: Normal Breast: Deferred Back: Normal Abdomen: Normal Genitourinary Exam: Normal Extremities: Normal DTRs: Deferred Pelvic Type: Adequate Vital Signs: Reviewed; Within Normal Limits VAGINAL EXAM Dilatation: 1 Effacement: th Station: oop Contraction Comments: rare MEMBRANES Pooling: Negative Membranes: Intact FETUS A EGA: 40.0 Monitoring: External US FHR- Baseline: 135 Variability: Minimal - Undetectable to <=5bpm Accelerations: 10X10 FHR Category: Category II FHR Comments: decels, unable to determine type Estimated Weight (gm): 3200 Presentation: Vertex Presentation- Other: sono today Admit Comment: at 40weeks was seen in office for NST today and nonreactive. sent to L_D for repeat NST. NST still not reactive and with minimal variability. sent for BPP=02/12. c/w dr bland and desicion to admit. pt takes clonazepam 1mg TID for anxiety, also takes metoprolol 25mg BID for tachycardia. nursery notified of pt admission and klonopin use. GBS negative. cervidil placed. yeast inf in office, will order fluconazole INFORMED CONSENT Assignment: Berta Bland MD Signature: with User ID: [email or web address] : with User ID: [email or web address]
[2020-05-31 15:38] LABS: ABSOLUTE BASOPHILS # (AUTO) 0.1 10^3/uL (0.0-0.2); ABSOLUTE EOSINOPHILS # (AUTO) 0.1 10^3/uL (0.0-0.6); ABSOLUTE MONOCYTES (AUTO) 1.1 10^3/uL (0.1-1.4); BASOPHILS % (AUTO) 0.4 % (0-2); EOSINOPHILS % (AUTO) 0.7 % (0-6); HEMATOCRIT 32.1 % (36.0-47.0); HEMOGLOBIN 10.8 g/dL (12.0-15.5); MEAN CORPUSCULAR HEMOGLOBIN 28.5 pg (27.0-33.4); MEAN CORPUSCULAR HGB CONC 33.5 g/dL (32.0-36.0); MEAN CORPUSCULAR VOLUME 85 fl (80-97); MONOCYTES % (AUTO) 7.5 % (3-13); PLATELET COUNT 242 10^3/uL (150-450); RED BLOOD COUNT 3.78 10^6/uL (3.72-5.28); RED CELL DISTRIBUTION WIDTH 15.8 % (11.5-14.0); SEGMENTED NEUTROPHILS % (AUTO) 77.4 % (42-78); TOTAL CELLS COUNTED % (AUTO) 100 %; WHITE BLOOD COUNT 14.2 10^3/uL (4.0-10.5)
[2020-05-31] MEDS ORDERED: FLUCONAZOLE 100 MG TABLET ONE (15:55)
[2020-05-31] MEDS ORDERED: ONDANSETRON HCL INJ/PF 4 MG/2 ML SDV IV ONE (20:51)
[2020-05-31] MEDS ORDERED: ONDANSETRON HCL INJ/PF 4 MG/2 ML SDV ONE (20:52)
[2020-05-31 21:27] LABS: URINE AMPHETAMINES SCREEN NEGATIVE; URINE BARBITURATES SCREEN NEGATIVE; URINE BENZODIAZEPINES SCREEN NEGATIVE; URINE COCAINE SCREEN NEGATIVE; URINE MARIJUANA (THC) SCREEN NEGATIVE; URINE METHADONE SCREEN NEGATIVE; URINE PHENCYCLIDINE SCREEN NEGATIVE
[2020-05-31] MEDS: METOPROLOL TARTRATE 25 MG TABLET PO SCH (22:01)
[2020-05-31 22:28] LABS: APPEARANCE,URINE CLEAR; BILIRUBIN,URINE NEGATIVE (NEGATIVE); COLOR,URINE YELLOW; GLUCOSE, URINE NEGATIVE (NEGATIVE); KETONES,URINE 20 mg/dL (NEGATIVE); LEUKOCYTE ESTERASE,URINE LARGE (NEGATIVE); NITRITE,URINE NEGATIVE (NEGATIVE); PROTEIN,URINE NEGATIVE (NEGATIVE); UROBILINOGEN,URINE NEGATIVE mg/dL (<2.0)
[2020-05-31] MEDS ORDERED: OXYTOCIN/0.9 % SODIUM CHLORIDE 30 UNIT/500 ML RTUINJ ONE (22:55)
[2020-05-31] MEDS ORDERED: OXYTOCIN/0.9 % SODIUM CHLORIDE 30 UNIT/500 ML RTUINJ IV PRN (22:56)
[2020-06-01] MEDS ORDERED: EPHEDRINE SULFATE INJ 50 MG/1 ML AMPULE ONE ×2 (00:44→11:37)
[2020-06-01] MEDS ORDERED: ROPIVACAINE HCL 0.2% INJ/PF (2 MG/ML) 20 ML SDV ONE (00:45)
[2020-06-01] MEDS ORDERED: FENTANYL/BUPIVACAINE/NS/PF 300 MCG/150 ML RTUINJ EPI ONE (00:45)
[2020-06-01] MEDS ORDERED: LIDOCAINE 1% INJ-PF (10 MG/ML) 30 ML SDV ONE (03:20)
[2020-06-01] MEDS ORDERED: OXYTOCIN 10 UNIT/ML VIAL ONE ×2 (03:20→11:36)
[2020-06-01] MEDS ORDERED: MISOPROSTOL 0.2 MG TABLET ONE ×2 (03:20→14:03)
[2020-06-01] MEDS ORDERED: OXYTOCIN/0.9 % SODIUM CHLORIDE 30 UNIT/500 ML RTUINJ IV PRN ×2 (04:00→12:49)
[2020-06-01] MEDS: CLONAZEPAM 1 MG TABLET PO SCH ×3 (06:36→22:20)
[2020-06-01] MEDS: METOPROLOL TARTRATE 25 MG TABLET PO SCH ×2 (10:00→22:22)
[2020-06-01] MEDS ORDERED: METOPROLOL TARTRATE 50 MG TABLET PO SCH (10:00)
[2020-06-01] MEDS ORDERED: SUCCINYLCHOLINE CHLORIDE INJ 200 MG/10 ML VIAL ONE (11:18)
[2020-06-01] MEDS ORDERED: FENTANYL CITRATE INJ/PF 100 MCG/2 ML AMPUL ONE (11:37)
[2020-06-01] MEDS ORDERED: ONDANSETRON HCL INJ/PF 4 MG/2 ML SDV ONE (11:37)
[2020-06-01] MEDS ORDERED: METHYLERGONOVINE MALEATE INJ/PF 0.2 MG/1 ML AMPULE ONE ×2 (11:37→14:44)
[2020-06-01] MEDS ORDERED: ACETAMINOPHEN 1,000 MG/100 ML RTUPB IV ONE ×2 (11:37→18:24)
[2020-06-01] MEDS ORDERED: MIDAZOLAM 2 MG/2 ML INJ ONE (11:37)
[2020-06-01] MEDS ORDERED: CITRIC ACID/SODIUM CITRATE ORAL SOLN 15 ML UDCUP ONE (11:38)
[2020-06-01] MEDS ORDERED: CEFAZOLIN 2 GM/D5W RTU 2 GM/50 ML RTUPB IV ONE (11:38)
[2020-06-01] MEDS ORDERED: KETOROLAC TROMETHAMINE INJ/PF 30 MG/1 ML SDV ONE (11:44)
[2020-06-01] MEDS ORDERED: LIDOCAINE 2% INJ-PF (20 MG/ML) 10 ML AMPUL ONE (11:44)
[2020-06-01] MEDS ORDERED: CITRIC ACID/SODIUM CITRATE ORAL SOLN 15 ML UDCUP PO PRN (11:52)
[2020-06-01] MEDS ORDERED: CEFAZOLIN 2 GM/D5W RTU 2 GM/50 ML RTUPB IV SCH (12:00)
[2020-06-01] MEDS ORDERED: SIMETHICONE 80 MG TAB.CHEW PO PRN (12:49)
[2020-06-01] MEDS ORDERED: OXYCODONE-ACETAMINOPHEN 5-325 MG TABLET PO PRN (12:49)
[2020-06-01] MEDS ORDERED: RINGERS SOLUTION,LACTATED 1,000 ML IV PRN (12:49)
[2020-06-01] MEDS ORDERED: PROMETHAZINE HCL INJ 25 MG/1 ML VIAL IV PRN (12:49)
[2020-06-01] MEDS ORDERED: MEASLES,MUMPS&RUBELLA VACC/PF 0.5 ML VIAL SUBCUT PRN (12:49)
[2020-06-01] MEDS ORDERED: MORPHINE SULFATE 10 MG/ML INJ IM PRN (12:49)
[2020-06-01] MEDS ORDERED: ACETAMINOPHEN 325 MG TABLET PO PRN (12:49)
[2020-06-01] MEDS ORDERED: DIPH/PERTUSS(ACELL)/TETANUS VAC/PF 0.5 ML SYR (>=10YO) IM PRN (12:49)
[2020-06-01] MEDS ORDERED: ACETAMINOPHEN 1,000 MG/100 ML RTUPB IV PRN (12:49)
--- NOTE | 2020-06-01 12:49 | Operative Report ---
Operative Report DATE OF SURGERY: 06/01/20 PREOPERATIVE DIAGNOSIS: IUP at term with failure to descend POSTOPERATIVE DIAGNOSIS: Same OPERATION: Very low transverse section delivery of a viable female SURGEON: RAIN MACKAY ANESTHESIA: GA TISSUE REMOVED OR ALTERED: Placenta ESTIMATED BLOOD LOSS: 900 cc PROCEDURE: The patient was taken to the operating room where spinal anesthesia was obtained and found to be adequate. She was then prepped and draped in the normal sterile fashion and placed in the dorsal supine position with a leftward tilt. A Pfannenstiel skin incision was then made and carried through to the underlying layers of the fascia with the scalpel. The fascia was incised in the midline and the incision extended laterally with the Lu scissors. The superior aspect of the fascial incision was then grasped with Robert clamps elevated and the underlying rectus muscles dissected off bluntly. Attention was then turned to the inferior aspect of the fascial incision which in a similar fashion was grasped, tented up with Deb clamps, and the rectus muscles dissected off bluntly. The rectus muscles were then in the midline and the peritoneum at the amount identified and entered bluntly. The peritoneal incision was then extended superiorly and inferiorly with good visualization of the bladder. [The bladder blade was inserted and the vesicouterine peritoneum identified grasped with Tunisian pickups and entered sharply with the Metzenbaum scissors. His incision was then extended laterally with the Metzenbaum scissors and a bladder flap created digitally. The bladder blade was then reinserted and the lower uterine segment incised in a transverse fashion with the scalpel. The uterine incision was then extended bluntly. The bladder blade was removed and the infant's head was delivered from cephalic presentation atraumatically. The nose and mouth were suctioned and the cord doubly clamped and cut. And the was handed off to waiting pediatricians. The placenta was then delivered manully and the uterus exteriorized and cleared of all clots and debris. The uterine incision was then repaired with 1-0 Vicryl in a running locked fashion. A second layer of the same suture was used to obtain hemostasis via imbrication of the initial layer. The uterus was returned to the patient's abdomen. The gutters were cleared of all clots and debris. All operative sites were noted to be hemostatic. The fascia was reapproximated with 0 Vicryl in a running fashion from each lateral edge to the midline. The patient tolerated the procedure well. Sponge lap needle and instrument counts are correct -2. 2 g of Ancef were given prior to skin incision. The patient was taken to the recovery area awake and in stable condition.
[2020-06-01] MEDS ORDERED: PROPOFOL INJ 200 MG/20 ML VIAL IV ONE (12:55)
[2020-06-01] MEDS ORDERED: KETOROLAC TROMETHAMINE INJ/PF 30 MG/1 ML SDV IV SCH (14:00)
[2020-06-01] MEDS ORDERED: MISOPROSTOL 0.2 MG TABLET PR ONE (14:00)
[2020-06-01] MEDS ORDERED: OXYTOCIN/0.9 % SODIUM CHLORIDE 30 UNIT/500 ML RTUINJ ONE (14:01)
[2020-06-01] MEDS ORDERED: TRANEXAMIC ACID INJ/PF 1,000 MG/10 ML SDV IV ONE (14:10)
[2020-06-01] MEDS ORDERED: TRANEXAMIC ACID INJ/PF 1,000 MG/10 ML SDV ONE (14:12)
[2020-06-01] MEDS ORDERED: METHYLERGONOVINE MALEATE INJ/PF 0.2 MG/1 ML AMPULE IM ONE (14:47)
[2020-06-01] MEDS ORDERED: DOCUSATE SODIUM 100 MG CAPSULE ONE (18:24)
[2020-06-01] MEDS: DOCUSATE SODIUM 100 MG CAPSULE PO SCH (18:25)
--- NOTE | 2020-06-01 18:40 | Warning Signs in Babies ---
VOD Warning Signs Datetime Report Generated by [facility]: 06/01/2020 18:39 VOD#[id number] -Warning Signs in Babies: Needs to be viewed. (02/10/2020 23:55:Asmita De La Paz RN)
--- NOTE | 2020-06-01 18:41 | Delivery Summary ---
Del Sum A-C Datetime Report Generated by CPN: 06/01/2020 18:40 DELIVERY PERSONNEL DELIVERY PERSONNEL: [id number] Delivery Doctor:: Donald Florentino MD MILIEU COORDINATOR:: Tammie Castro CRNA Director Of [facility]:: Asmita De La Paz, RN Nurse Educator/LUMBER MATERIAL HANDLER: Katherine Argueta, PICKING BELT OPERATOR Nurse Educator/LUMBER MATERIAL HANDLER: Anamika Baca, PICKING BELT OPERATOR MATERNAL INFORMATION Delivery Anesthesia: General Medications After Delivery: Pitocin Bolus-Please Comment; Pitocin 30 Units in 500ml NS/D5W; Methergine 0.2mg IM; Cytotec 1000mcg Per Rectum/Vagina; Other-Please Comment Meds After Delivery Comment: 60 units of Pitocin in 1000mLs NS; TXA Delivery QBL: 479 Maternal Complications: None LABOR SUMMARY EDC: 05/31/2020 00:00 No. Babies in Womb: 1 Attempted: No Labor Anesthesia: Epidural LABOR INFORMATION Reason for Induction: Post Dates Onset of Labor: 06/01/2020 01:18 Cervical Ripening Agents: Cervidil Oxytocin: Induction Group B Beta Strep: Negative Antibiotics # of Doses: 0 Name of Antibiotic Given: n/a Steroids Given: None Reason Steroids Not Administered: Not Applicable MEMBRANES Membranes Rupture Method: Spontaneous Rupture of Membranes: 05/31/2020 21:16 Length of Rupture (hr): 15.23 Amniotic Fluid Color: Clear Amniotic Fluid Amount: Small Amniotic Fluid Odor: Normal STAGES OF LABOR Stage 3 hr: 0 Stage 3 min: 1 Total Time in Labor hr: 11 Total Time in Labor min: 13 VAGINAL DELIVERY Episiotomy: None Laceration #1: None Laceration Extension #1: N/A Laceration Repair: Not Applicable Sponge Count Correct: N/A CSECTION DELIVERY Primary Indication: Arrest of Descent CSection Urgency: Non-Scheduled CSection Incidence: Primary Labor: Labor Elective: Nonelective CSection Incision: Lower Uterine Transverse BABY A INFORMATION Delivery Date/Time: 06/01/2020 12:30 Method of Delivery: Nurse Controlled Delivery: No Born in Route : No : N/A Forceps: N/A Vacuum Extraction: N/A Shoulder Dystocia : No PRESENTATION/POSITION BABY A Presentation: Cephalic Cephalic Presentation: Vertex Breech Presentation: N/A PLACENTA INFORMATION BABY A Placenta Delivery Time : 06/01/2020 12:31 Placenta Method of Delivery: Manual Removal Placenta Status: Delivered SCORES BABY A Heart Rate 1 min: >100 bpm Resp Effort 1 min: Good Cry Reflex Irritability 1 min: Cough or Sneeze or Pulls Away Muscle Tone 1 min: Active Motion Color 1 min: Blue/Pale Resuscitation Effort 1 min: Tactile Stimulation SCORE 1 MIN: 8 Heart Rate 5 min: >100 bpm Resp Effort 5 min: Good Cry Reflex Irritability 5 min: Cough or Sneeze or Pulls Away Muscle Tone 5 min: Active Motion Color 5 min: Body [place], Extremities Blue Resuscitation Effort 5 min: Tactile Stimulation SCORE 5 MIN: 9 INFORMATION BABY A Gestational Age at Delivery: 40.1 Gestational Status: Full Term- 39- 40.6 Weeks Outcome : Liveborn Infant Condition : Stable Sex: Female IDENTIFICATION BABY A Infant Verification Date/Time: 06/01/2020 12:34 ID Band Number: [id number] Mother's Name Verified: Yes RN Verifying Infant: Florencio De La PazADDISON Additional Verifying Personnel: Lavern Ventura RN WEIGHT/LENGTH BABY A Birthweight (gm): 3410 Weight (lb): 7 Weight (oz): 8 Length (in): 20.00 Length (cm): 50.80 CORD INFORMATION BABY A No. Cord Vessels: 3 Nuchal Cord : Around Neck x1, Loose Cord Blood Taken: Yes-For Eval (Mom's Blood Type - or O+) Infant Suction: None ASSESSMENT BABY A Complications: None Physical Findings at Delivery: Within Normal Limits Infant Respirations: Appears Normal Skin to Skin: No Infant Care By: Lavern Ventura RN Transferred To: Nursery BABY B INFORMATION : N/A SIGNATURES Signature: with User ID: [email or web address] : I was personally available for consultation and serving as supervising physician for the MLP.
--- NOTE | 2020-06-01 18:41 | Birth Certificate Data ---
Cert Data Datetime Report Generated by CPN: 06/01/2020 18:40 CERTIFICATE DATA Delivery Provider: Donald Florentino MD (06/01/2020 13:52:Asmita De La Paz RN) 47a. Care: Yes (02/10/2020 23:55:Alana Rg RN) 47b. Date of First Visit: 11/19/2019 00:00 (02/10/2020 23:55:Alana Rg RN) 47c. Date of Last Visit: 05/31/2020 00:00 (02/10/2020 23:55:Alana Rg RN) 47d. Number of Visits: 12 (02/10/2020 23:55:Alana Rg RN) 48a. Number of Prev Live Births: 0 (02/10/2020 23:55:Alana Rg RN) 48b. Now Livin (02/10/2020 23:55:Liyah Guillaume RN) 48c. Live Births Now : 0 (02/10/2020 23:55:QS system process) 48e. Losses: 1 (02/10/2020 23:55:Alana Rg RN) 48f. Date of Last Preg Loss: 01/19/2013 00:00 (02/10/2020 23:55:Alana Rg RN) RISK FACTORS IN THIS 49a. Diabetes: No (02/10/2020 23:55:Alana Rg RN) 49b. Hypertension: No (02/10/2020 23:55:Alana Rg RN) 49c. Previous Births: 0 (02/10/2020 23:55:Liyah Guillaume RN) 49d. Stillborns: No (02/10/2020 23:55:Alana Rg RN) 49d. IUGR: No (02/10/2020 23:55:Alana gR RN) 49e. Infertility Treatment: No (02/10/2020 23:55:Alana Rg RN) 49f. Previous Cesareans: 0 (Annotations: Data stored by Erik on behalf of user) (02/10/2020 23:55:Alana Rg RN) Mother's Height 50b. Height Inches: 64 (05/31/2020 23:35:QS system process) Mother's Weight 51a. Pre- Weight (lbs): 123 (02/10/2020 23:55:Alana Rg RN) 51b. Weight at Delivery (lbs): 156 (05/31/2020 23:35:QS system process) 52. Dt Last Normal Menses Began: 08/26/2019 00:00 (02/10/2020 23:55:Alana Rg RN) Infections Present/Treated 53a. Gonorrhea: No (02/10/2020 23:55:Alana Rg RN) Results this Hospital Visit : Negative (02/10/2020 23:55:Liyah Guillaume RN) 53b. Syphilis: No (02/10/2020 23:55:Alana Rg RN) Results this Hospital Visit: NONREACTIVE (05/31/2020 15:19:QS system process) 53c. Chlamydia: No (02/10/2020 23:55:Alana Rg RN) Results this Hospital Visit: Negative (02/10/2020 23:55:Liyah Guillaume RN) 53d. Hepatitis B: No (02/10/2020 23:55:Alana Rg RN) Results this Hospital Visit: Negative (02/10/2020 23:55:Liyah Guillaume RN) 53e. Hepatitis C: Negative (02/10/2020 23:55:Alana Rg RN) 53h. Mother Tested for HBsAG: Yes (02/10/2020 23:55:Alana Rg RN) 53i. Date Tested: 11/19/2019 00:00 (02/10/2020 23:55:Alana Rg RN) 53j. Test Result: Negative (02/10/2020 23:55:Liyah Guillaume RN) Obstetric Procedures 54a, b, c. Obstetric Procedures: Ultrasound; BPP (02/10/2020 23:55:Alana Rg RN) Cigarette Smoking Cigarette Smoking: Never Smoker. [id number] (02/10/2020 23:55:Alana Rg RN) 55a. 3 Months Before Preg - Ci (02/10/2020 23:55:[facility]) 55b. 1st Trimester of Preg- Ci (02/10/2020 23:55:[facility]) 55c. 2nd Trimester of Preg- Ci (02/10/2020 23:55:[facility]) 55d. 3rd Trimester of Preg- Ci (02/10/2020 23:55:[facility]) Onset of Labor 56a. PROM >12 Hrs: 15.23 (02/10/2020 23:55:QS system process) 56b. Precipitous Labor <3 Hrs: 11 (02/10/2020 23:55:QS system process) 56c. Prolonged Labor > 20 Hrs: 11 (02/10/2020 23:55:QS system process) 57a. Induction of Labor: Induction (02/10/2020 23:55:Asmita De La Paz RN) 57a. Induction of Labor: Cervidil (05/31/2020 14:59:Alana Rg RN) 57c. Non-Vertex Presentation A: Vertex (02/10/2020 23:55:Asmita De La Paz RN) 57d. Steroids - Lung Mat: None (02/10/2020 23:55:Asmita De La Paz RN) 57d. Steroids - Lung Mat: Not Applicable (02/10/2020 23:55:Asmita De La Paz RN) 57f. Mat [place] or Temp >100.4: 99.5 (02/10/2020 23:55:Asmita De La Paz RN) 57g. Moderate/Heavy Meconium: Clear (05/31/2020 21:16:Mariza Gtz RN) 57h. Intolerance of Labor: Arrest of Descent (02/10/2020 23:55:Donald Florentino MD ([facility])) 57i. Epidural/Spinal Anesthesia: Epidural (02/10/2020 23:55:Asmita De La Paz RN) Method of Delivery 58a. Forceps - Unsuccessful A: N/A (02/10/2020 23:55:Asmita De La Paz RN) 58b. Vacuum - Unsuccessful A: N/A (02/10/2020 23:55:Asmita De La Paz RN) 58c. Presentation at 58c. Presentation at - A : Vertex (02/10/2020 23:55:Asmita De La Paz RN) 58c. Presentation at - A : N/A (02/10/2020 23:55:Asmita De La Paz RN) 58c. Presentation at - A : Cephalic (06/01/2020 01:18:Mariza Gtz RN) Final Route and Method of Del 58d. Baby A Route/Delivery: (02/10/2020 23:55:Donald Florentino MD ([facility])) 58e. Trial of Labor Attempted: No (02/10/2020 23:55:Asmita De La Paz RN) 58e. Trial of Labor Attempted A: N/A (02/10/2020 23:55:Asmita De La Paz RN) 58e. Trial of Labor Attempted B: N/A (02/10/2020 23:55:Asmita De La Paz RN) Maternal Morbidity 59b. 3rd or 4th Degree Lacs: None (02/10/2020 23:55:Asmita De La Paz, RN) Birthweight Baby A: 3410 (02/10/2020 23:55:Lanny Altamirano RN) 60a. Pounds : 7 (02/10/2020 23:55:QS system process) 60b. Ounces: 8 (02/10/2020 23:55:QS system process) 61. GA at Delivery Baby A: 40.1 (02/10/2020 23:55:Asmita De La Paz RN) : Full Term- 39- 40.6 Weeks (02/10/2020 23:55:QS system process) 62a. 5 Minute Baby A: 9 (02/10/2020 23:55:QS system process)
[2020-06-01] MEDS ORDERED: METHYLERGONOVINE MALEATE 0.2 MG TABLET PO SCH (20:00)
[2020-06-01] MEDS ORDERED: METHYLERGONOVINE MALEATE 0.2 MG TABLET ONE (22:08)
[2020-06-01] MEDS: METHYLERGONOVINE MALEATE 0.2 MG TABLET PO SCH (22:19)
[2020-06-01] MEDS: KETOROLAC TROMETHAMINE INJ/PF 30 MG/1 ML SDV IV SCH (22:21)
[2020-06-02] MEDS: IBUPROFEN 800 MG TABLET PO SCH ×5 (00:35→23:49)
[2020-06-02] MEDS: KETOROLAC TROMETHAMINE INJ/PF 30 MG/1 ML SDV IV SCH ×4 (06:10→22:13)
[2020-06-02] MEDS: METHYLERGONOVINE MALEATE 0.2 MG TABLET PO SCH ×4 (06:10→21:56)
[2020-06-02] MEDS: CLONAZEPAM 1 MG TABLET PO SCH ×3 (06:10→21:55)
[2020-06-02 07:07] LABS: HEMATOCRIT 24.5 % (36.0-47.0); MEAN CORPUSCULAR HEMOGLOBIN 28.3 pg (27.0-33.4); MEAN CORPUSCULAR HGB CONC 33.6 g/dL (32.0-36.0); MEAN CORPUSCULAR VOLUME 84 fl (80-97); PLATELET COUNT 162 10^3/uL (150-450); RED BLOOD COUNT 2.91 10^6/uL (3.72-5.28); RED CELL DISTRIBUTION WIDTH 15.7 % (11.5-14.0); WHITE BLOOD COUNT 19.9 10^3/uL (4.0-10.5)
[2020-06-02 07:10] LABS: HEMOGLOBIN 8.2 g/dL (12.0-15.5)
[2020-06-02] MEDS: PRENATAL VITAMIN W DHA CAPSULE PO SCH (10:44)
[2020-06-02] MEDS: METOPROLOL TARTRATE 25 MG TABLET PO SCH ×2 (10:45→21:56)
[2020-06-02] MEDS: DOCUSATE SODIUM 100 MG CAPSULE PO SCH ×2 (10:45→18:02)
--- NOTE | 2020-06-02 12:24 | PDOC PROGRESS REPORT ---
Subjective-OB Progress Note for:: 06/02/20 Subjective: Doing well, no concerns. She reports light bleeding reg diet, voiding w/o difficulty and +flatus. Physical Exam (OB) Vital Signs: Temp Pulse Resp BP Pulse Ox 97.8 F 64 16 120/74 98 06/02/20 12:00 06/02/20 12:00 06/02/20 12:00 06/02/20 12:00 06/02/20 12:00 Intake & Output 06/01/20 06/02/20 06/03/20 06:59 06:59 06:59 Intake Total 1100 380 Output Total 1750 Balance -650 380 Weight 71.4 kg - Dressing Removed: No Incision: Dressing Closure Type: Pressure - Maternal Morbidity 59. Maternal Morbidity (serious complications experinced by the mother associated with labor and delivery: None of the above - Lochia Lochia Amount: Scant < 10 ml Lochia Color: Rubra/Red - Abdomen Description: Tender, Soft, Distended Hernia Present: No Fundal Description: Firm, Midline Describe if Not Midline: deviated to right, farrar adjusted, massage return to midline Fundal Height: u/u - u/2 Objective-Diagnostic Laboratory: 06/02/20 06:42 06/02/20 06:42 WBC 19.9 H RBC 2.91 L Hgb 8.2 L D Hct 24.5 L MCV 84 MCH 28.3 MCHC 33.6 RDW 15.7 H Plt Count 162 Assessment and Plan(PN) - Assessment and Plan (1) Encounter for induction of labor Is this a current diagnosis for this admission?: Yes (2) Non-reassuring heart tones complicating , antepartum Is this a current diagnosis for this admission?: Yes (3) S/P primary low transverse Is this a current diagnosis for this admission?: Yes - Time Spent with Patient Time with patient: Less than 15 minutes Medications reviewed and adjusted accordingly: Yes - Disposition Anticipated Discharge Disposition: Home, Self Care Anticipated Discharge Timeframe: within 24 hours
[2020-06-02] MEDS ORDERED: IRON SUCROSE COMPLEX INJ/PF 100 MG/5 ML SDV IV ONE (13:00)
[2020-06-03] MEDS: CLONAZEPAM 1 MG TABLET PO SCH (06:03)
[2020-06-03] MEDS: IBUPROFEN 800 MG TABLET PO SCH ×2 (06:03→12:20)
[2020-06-03 06:55] LABS: ABSOLUTE EOSINOPHILS # (AUTO) 0.3 10^3/uL (0.0-0.6); ABSOLUTE LYMPHOCYTES (AUTO) 1.4 10^3/uL (0.5-4.7); ABSOLUTE MONOCYTES (AUTO) 1.1 10^3/uL (0.1-1.4); ABSOLUTE NEUT (AUTO) 11.4 10^3/uL (1.7-8.2); BASOPHILS % (AUTO) 0.2 % (0-2); EOSINOPHILS % (AUTO) 2.3 % (0-6); HEMATOCRIT 25.1 % (36.0-47.0); HEMOGLOBIN 8.4 g/dL (12.0-15.5); LYMPHOCYTES % (AUTO) 9.9 % (13-45); MEAN CORPUSCULAR HEMOGLOBIN 28.3 pg (27.0-33.4); MEAN CORPUSCULAR HGB CONC 33.4 g/dL (32.0-36.0); MEAN CORPUSCULAR VOLUME 85 fl (80-97); MONOCYTES % (AUTO) 7.7 % (3-13); PLATELET COUNT 166 10^3/uL (150-450); RED BLOOD COUNT 2.96 10^6/uL (3.72-5.28); RED CELL DISTRIBUTION WIDTH 16.3 % (11.5-14.0); SEGMENTED NEUTROPHILS % (AUTO) 79.9 % (42-78); TOTAL CELLS COUNTED % (AUTO) 100 %; WHITE BLOOD COUNT 14.2 10^3/uL (4.0-10.5)
[2020-06-03] MEDS: DOCUSATE SODIUM 100 MG CAPSULE PO SCH (09:29)
[2020-06-03] MEDS: PRENATAL VITAMIN W DHA CAPSULE PO SCH (09:29)
[2020-06-03] MEDS: METOPROLOL TARTRATE 25 MG TABLET PO SCH (09:29)
--- NOTE | 2020-06-03 10:11 | PDOC DISCHARGE SUMMARY ---
Impression - Admit/DC Date/PCP Admission Date/Primary Care Provider: 05/31/20 14:01 RICHIE WATSON DO Discharge Date: 06/03/20 - Discharge Diagnosis (1) Encounter for induction of labor Is this a current diagnosis for this admission?: Yes (2) Non-reassuring heart tones complicating , antepartum Is this a current diagnosis for this admission?: Yes (3) S/P primary low transverse Is this a current diagnosis for this admission?: Yes - Additional Information Resuscitation Status: Full Code Discharge Diet: Regular Discharge Activity: Balance Activity w/Rest, No Lifting Over 10 Pounds, No Lifting/Push/Pulling, Pelvic Rest, No tub bath Referrals: RICHIE WATSON DO [Primary Care Provider] - Home Medications: Clonazepam [Klonopin 1 mg Tablet] 1 mg PO TID 05/26/19 Metoprolol Tartrate [Lopressor 25 mg Tablet] 25 mg PO Q12 05/26/19 Vit,Calc76/Iron/Folic [Prenatabs Rx Tablet] 1 tab PO DAILY 05/31/20 HPI Gestational Age: 40 Reason(s) for Admission: Induction of Labor, Status, Obstetric Complications Procedures: NST Intrapartum Procedure(s): : Low Cervical, Transverse Hospital Course 59. Maternal Morbidity (serious complications experinced by the mother associated with labor and delivery: None of the above Results Laboratory Results: WBC 19.9 10^3/uL (4.0-10.5) H 06/02/20 06:42 RBC 2.91 10^6/uL (3.72-5.28) L 06/02/20 06:42 Hgb 8.2 g/dL (12.0-15.5) L D 06/02/20 06:42 Hct 24.5 % (36.0-47.0) L 06/02/20 06:42 MCV 84 fl (80-97) 06/02/20 06:42 MCH 28.3 pg (27.0-33.4) 06/02/20 06:42 MCHC 33.6 g/dL (32.0-36.0) 06/02/20 06:42 RDW 15.7 % (11.5-14.0) H 06/02/20 06:42 Plt Count 162 10^3/uL (150-450) 06/02/20 06:42 Lymph % (Auto) 14.0 % (13-45) 05/31/20 15:19 [place] % (Auto) 7.5 % (3-13) 05/31/20 15:19 Eos % (Auto) 0.7 % (0-6) 05/31/20 15:19 Baso % (Auto) 0.4 % (0-2) 05/31/20 15:19 Absolute Neuts (auto) 11.0 10^3/uL (1.7-8.2) H 05/31/20 15:19 Absolute Lymphs (auto) 2.0 10^3/uL (0.5-4.7) 05/31/20 15:19 Absolute Monos (auto) 1.1 10^3/uL (0.1-1.4) 05/31/20 15:19 Absolute Eos (auto) 0.1 10^3/uL (0.0-0.6) 05/31/20 15:19 Absolute Basos (auto) 0.1 10^3/uL (0.0-0.2) 05/31/20 15:19 Seg Neutrophils % 77.4 % (42-78) 05/31/20 15:19 Urine Color YELLOW 05/31/20 20:45 Urine Appearance CLEAR 05/31/20 20:45 Urine pH 7.0 (5.0-9.0) 05/31/20 20:45 Ur Specific [place] 1.010 05/31/20 20:45 Urine Protein NEGATIVE mg/dL (NEGATIVE) 05/31/20 20:45 Urine Glucose (UA) NEGATIVE mg/dL (NEGATIVE) 05/31/20 20:45 Urine Ketones 20 mg/dL (NEGATIVE) H 05/31/20 20:45 Urine Blood LARGE (NEGATIVE) H 05/31/20 20:45 Urine Nitrite NEGATIVE (NEGATIVE) 05/31/20 20:45 Urine Bilirubin NEGATIVE (NEGATIVE) 05/31/20 20:45 Urine Urobilinogen NEGATIVE mg/dL (<2.0) 05/31/20 20:45 Ur Leukocyte Esterase LARGE (NEGATIVE) H 05/31/20 20:45 Urine Ascorbic Acid NEGATIVE (NEGATIVE) 05/31/20 20:45 Membranes Rupture POSITIVE (NEGATIVE) H 05/31/20 22:11 Urine Opiates Screen NEGATIVE 05/31/20 20:45 Urine Methadone Screen NEGATIVE 05/31/20 20:45 Ur Barbiturates Screen NEGATIVE 05/31/20 20:45 Ur Phencyclidine Scrn NEGATIVE 05/31/20 20:45 Ur Amphetamines Screen NEGATIVE 05/31/20 20:45 U Benzodiazepines Scrn NEGATIVE 05/31/20 20:45 Urine Cocaine Screen NEGATIVE 05/31/20 20:45 U Marijuana (THC) Screen NEGATIVE 05/31/20 20:45 RPR NONREACTIVE (NONREACTIVE) 05/31/20 15:19 Blood Type O POSITIVE 05/31/20 15:19 Antibody Screen NEGATIVE 05/31/20 15:19 Impressions: Stress Test 05/31/20 12:54 IMPRESSION: BIOPHYSICAL PROFILE: 02/12. Trimester of : Third - 28 weeks to delivery Plan Plan of Treatment: f/u at [facility] next week for incision check
[2020-06-03 11:47] VITALS: BP 122/76
== END 2020-06-03 12:45 | disposition home or self-care (01) | DRG 788 ==
LOC: LC 11:41 → LR 14:01 → 2N 06-01 20:50
PROVIDERS: ADMIT Obstetrics & Gynecology; ATTEND Obstetrics & Gynecology
PROC: 10D00Z1 Extraction of Products of Conception, Low, Open Approach (ICD-10-PCS; principal; 2020-06-01)
PROC: 3E033VJ Introduction of Other Hormone into Peripheral Vein, Percutaneous Approach (ICD-10-PCS; 2020-06-01)
DX: O76 Abnormality in fetal heart rate and rhythm complicating labor and delivery (principal); O99.344 Other mental disorders complicating childbirth; F41.9 Anxiety disorder, unspecified; Z20.828 Contact with and (suspected) exposure to other viral communicable diseases; O69.81X0 Labor and delivery complicated by cord around neck, without compression, not applicable or unspecified; Z88.2 Allergy status to sulfonamides; Z88.1 Allergy status to other antibiotic agents; Z3A.40 40 weeks gestation of pregnancy; Z37.0 Single live birth
CPT/HCPCS: 1967; 1968; 36415; 76819; 80307; 81005; 84112; 85025; 85027; 86592; 86850; 86900; 86901; 94799; J0131; J0330; J0690; J1756; J1885; J2210; J2250; J2405; J2590; J2704; J2795; J3010; J3490

== ENCOUNTER 2020-07-13 15:13 | Emergency (ER) | payer OTHER ==
[2020-07-13 15:31] VITALS: BP 132/85
== END 2020-07-13 17:52 | disposition left against medical advice (07) ==
LOC: ER 15:13
DX: Z53.21 Procedure and treatment not carried out due to patient leaving prior to being seen by health care provider (principal)

== ENCOUNTER 2020-07-15 18:12 | Emergency (ER) | payer OTHER ==
--- NOTE | 2020-07-15 19:31 | ER Document Report ---
ED Medical Screen (RME) - General Chief Complaint: Blood Pressure Problem Stated Complaint: BLOOD PRESSURE PROBLEM Time Seen by Provider: 07/15/20 19:23 Mode of Arrival: Ambulatory Information source: Patient Notes: HPI; 29-year-old female states she was diagnosed with postdelivery preeclampsia on June 08. States she was placed on Procardia for 2 weeks it was discontinued on the she takes metoprolol for tachycardia was told to continue with the metoprolol 25 mg twice a day. She states she started noticing that her heart rate was going down after being on metoprolol followed up with her retail grocer as scheduled for heart monitor next week. She is been continuing to monitor her blood pressure at home. She states today it was running 140/101 30 of 100 noticed that her heart rate was up and was having some palpitations. Denies any chest pain, shortness of breath, no difficulty breathing. States her blood pressures being managed by her [employer] [facility]. States she did not call them today when her blood pressure was elevated and started having palpitations. PE: Alert and oriented x3. Lungs: Clear to auscultation without rales, rhonchi, wheezes. Heart: Regular rate rhythm without murmurs, rubs, gallops. I have greeted and performed a rapid initial assessment of this patient. A comprehensive ED assessment and evaluation of the patient, analysis of test results and completion of the medical decision making process will be conducted by additional ED providers. I have specifically instructed the patient or family members with the patient to immediately return to any nursing staff should anything change in the patient's condition or with their chief complaint. TRAVEL OUTSIDE OF THE [place] IN LAST 30 DAYS: No - Related Data Allergies/Adverse Reactions: ciprofloxacin [From Cipro] Allergy (Verified 02/10/20 23:43) metoclopramide [From Reglan] Allergy (Verified 02/10/20 23:43) Sulfa (Sulfonamide Antibiotics) Allergy (Verified 02/10/20 23:43) Past Medical History Renal/ Medical History: Reports: Hx Kidney Stones Past Surgical History: Reports: Hx Oral Surgery Physical Exam - Vital signs Vitals: Temp Pulse Resp BP Pulse Ox 98.2 F 89 18 139/92 H 99 07/15/20 18:16 07/15/20 18:16 07/15/20 18:16 07/15/20 18:16 07/15/20 18:16 Course - Vital Signs Vital signs: Temp Pulse Resp BP Pulse Ox 98.2 F 89 18 139/92 H 99 07/15/20 18:16 07/15/20 18:16 07/15/20 18:16 07/15/20 18:16 07/15/20 18:16
[2020-07-15 20:18] LABS: ALBUMIN 4.9 g/dL (3.5-5.0); ALKALINE PHOSPHATASE 88 U/L (38-126); ANION GAP 8 (5-19); ASPARTATE AMINO TRANSFERASE 17 U/L (14-36); BILIRUBIN,DIRECT 0.2 mg/dL (0.0-0.4); BILIRUBIN,TOTAL 0.4 mg/dL (0.2-1.3); BLOOD UREA NITROGEN 9 mg/dL (7-20); CALCIUM 9.9 mg/dL (8.4-10.2); CARBON DIOXIDE 29 mmol/L (22-30); CHLORIDE 102 mmol/L (98-107); GLUCOSE 99 mg/dL (75-110); POTASSIUM 3.8 mmol/L (3.6-5.0); TOTAL PROTEIN 8.1 g/dL (6.3-8.2)
[2020-07-15 20:19] LABS: ABSOLUTE EOSINOPHILS # (AUTO) 0.1 10^3/uL (0.0-0.6); ABSOLUTE LYMPHOCYTES (AUTO) 1.4 10^3/uL (0.5-4.7); ABSOLUTE MONOCYTES (AUTO) 0.5 10^3/uL (0.1-1.4); ABSOLUTE NEUT (AUTO) 5.3 10^3/uL (1.7-8.2); BASOPHILS % (AUTO) 0.5 % (0-2); EOSINOPHILS % (AUTO) 0.8 % (0-6); HEMATOCRIT 39.6 % (36.0-47.0); HEMOGLOBIN 13.1 g/dL (12.0-15.5); MEAN CORPUSCULAR VOLUME 85 fl (80-97); MONOCYTES % (AUTO) 7.2 % (3-13); PLATELET COUNT 341 10^3/uL (150-450); RED BLOOD COUNT 4.67 10^6/uL (3.72-5.28); RED CELL DISTRIBUTION WIDTH 15.3 % (11.5-14.0); SEGMENTED NEUTROPHILS % (AUTO) 72.5 % (42-78); TOTAL CELLS COUNTED % (AUTO) 100 %; WHITE BLOOD COUNT 7.4 10^3/uL (4.0-10.5)
--- NOTE | 2020-07-15 20:42 | RADIOLOGY REPORT (SQ) ---
EXAM DESCRIPTION: Site: CHEST 2 VIEWS RP: XR CHEST 2 VIEWS Views: 2 CLINICAL HISTORY: 29 years Female; palpitations; COMPARISON: 08/22/2019 FINDINGS: Lungs: Lungs are clear, with no focal infiltrate, pneumothorax, or pleural effusion. Mediastinum: Mediastinum is within normal limits for this positioning. Heart size is normal. Bones: Bony structures are unremarkable. IMPRESSION: 1. No acute cardiothoracic abnormality.
--- NOTE | 2020-07-15 21:47 | EKG REPORT ---
SEVERITY:- NORMAL ECG - SINUS RHYTHM : Confirmed by: Bushra Chavez 15-Jul-2020 21:46:17
[2020-07-16 01:47] LABS: APPEARANCE,URINE CLEAR; BILIRUBIN,URINE NEGATIVE (NEGATIVE); COLOR,URINE YELLOW; GLUCOSE, URINE NEGATIVE (NEGATIVE); KETONES,URINE TRACE mg/dL (NEGATIVE); LEUKOCYTE ESTERASE,URINE NEGATIVE (NEGATIVE); NITRITE,URINE NEGATIVE (NEGATIVE); PROTEIN,URINE NEGATIVE (NEGATIVE); UROBILINOGEN,URINE NEGATIVE mg/dL (<2.0)
--- NOTE | 2020-07-16 02:38 | ER Document Report ---
ED Blood Pressure Problem - General Chief Complaint: High Blood Pressure Stated Complaint: BLOOD PRESSURE PROBLEM Time Seen by Provider: 07/15/20 19:23 Primary Care Provider: [facility] [Provider Group] - Follow up as needed JM LUA MD [ACTIVE PROVISIONAL STAFF] - Follow up as needed Mode of Arrival: Ambulatory Notes: 29-year-old female presented to ED for complaint of elevated blood pressure at home. She states she was diagnosed with post delivery preeclampsia on June 08. She was placed on Procardia for 2 weeks. This was discontinued on the when her pulse stopped. She is now on metoprolol 25 mg twice a day. She states she is supposed to go into her hogshead hand next week for a Holter monitor. She states she is supposed to continue monitoring her blood pressure lying sitting and standing. She states she did this today and they were normal but then when she rechecked it every 10 minutes for several more times and the blood pressure crept up but she became very anxious and her pulse started going faster. Denies any chest pain shortness of breath or any other problems. She was concerned because of the blood pressure. She states she became very anxious she does have a history of anxiety so she came to the emergency room. She did not call her [employer] or cardiology. Constitutional: Negative for fever. HENT: Negative for sore throat. Eyes: Negative for visual changes. Cardiovascular: Negative for chest pain. Respiratory: Negative for shortness of breath. Gastrointestinal: Negative for abdominal pain, vomiting or diarrhea. Genitourinary: Negative for dysuria. Musculoskeletal: Negative for back pain. Skin: Negative for rash. Neurological: Negative for headaches, weakness or numbness. 10 point ROS negative except as marked above and in HPI. VITAL SIGNS: Within normal limits. GENERAL: No acute distress, non-toxic appearance. HEAD: Normal with no signs of head trauma. EYES: PERRLA, EOMI, conjunctiva normal, no discharge. EARS: Hearing grossly intact. NOSE: Normal. THROAT: Oropharynx is normal. NECK: Normal range of motion, no tenderness, supple, no lymphadenopathy, No adenopathy, no JVD. CHEST: Clear breath sounds bilaterally. No wheezes, rales, or rhonchi. CARDIAC: Regular rate and rhythm. S1 and S2, without murmurs, gallops, or rubs. VASCULAR: No Edema. Peripheral pulses normal and equal in all extremities. ABDOMEN: Normal and soft with no tenderness, no masses or pulsatile masses. GASTROINTESTINAL: Bowel sounds normal GENITOURINARY: Normal, No tenderness LYMPATHTIC: No lymphadenopathy noted. MUSCULOSKELETAL: Good range of motion of all major joints. Extremities without clubbing, cyanosis or edema. NEUROLOGICAL: Alert and oriented x 3. No focal sensory or strength deficits. Speech normal. Follows commands appropriately. PSYCHIATRIC: Normal Affect, judgement and mood. SKIN: Normal appearance with no rashes or lesions. TRAVEL OUTSIDE OF THE [place] IN LAST 30 DAYS: No - HPI Patient complains to provider of: High blood pressure Onset: Other - Was diagnosed post delivery preeclampsia on June 08 has been monitoring blood pressure. Today she became very anxious and it was elevated. Onset/Duration: Better Quality of pain: No pain Severity: None Pain Level: Denies Problem is: Chronic problem Similar symptoms previously: Yes Recently seen / treated by doctor: Yes - Related Data Allergies/Adverse Reactions: ciprofloxacin [From Cipro] Allergy (Verified 02/10/20 23:43) metoclopramide [From Reglan] Allergy (Verified 02/10/20 23:43) Sulfa (Sulfonamide Antibiotics) Allergy (Verified 02/10/20 23:43) Home Medications: clenazapam 1mg TID, metoprolol 12.5/daily Past Medical History - General Information source: Patient - Social History Smoking Status: Never Smoker Frequency of alcohol use: None Drug Abuse: None Lives with: Family Family History: Reviewed & Not Pertinent Patient has suicidal ideation: No Patient has homicidal ideation: No - Past Medical History Cardiac Medical History: Reports: Hx Hypertension, Other - Tachycardia Pulmonary Medical History: Reports: None EENT Medical History: Reports: None Neurological Medical History: Reports: None Endocrine Medical History: Reports: None Renal/ Medical History: Reports: Hx Kidney Stones, Other - Post delivery preeclampsia Malignancy Medical History: Reports: None GI Medical History: Reports: None Musculoskeletal Medical History: Reports None Skin Medical History: Reports None Psychiatric Medical History: Reports: Hx Anxiety Traumatic Medical History: Reports: None Past Surgical History: Reports: Hx Oral Surgery Physical Exam - Vital signs Vitals: Temp Pulse Resp BP Pulse Ox 98.2 F 89 18 139/92 H 99 07/15/20 18:16 07/15/20 18:16 01/08/21 18:16 07/15/20 18:16 07/15/20 18:16 Course - Re-evaluation Re-evalutation: 07/16/20 08:22 Discussed labs and x-rays before patient was discharged home. Patient was stabl e she was discharged home and instructed to follow-up with her hogshead hand and her [employer]. Patient was encouraged not to keep repeating her blood pressure over and over again or she will become more anxious and then the blood pressure was higher and higher. Patient verbalized understanding and agreement with this and she was discharged home. - Vital Signs Vital signs: Temp Pulse Resp BP Pulse Ox 97.8 F 68 15 121/96 H 97 07/16/20 02:45 07/16/20 02:45 07/16/20 02:45 07/16/20 02:45 07/16/20 02:45 - Laboratory Results Result Diagrams: 07/15/20 19:47 07/15/20 19:47 Laboratory Results Interpreted: 07/15/20 07/16/20 19:47 01:18 RDW 15.3 H Urine Ketones TRACE H Critical Laboratory Results Reviewed: No Critical Results - Radiology Results Critical Radiology Results Reviewed: No Critical Results Discharge - Discharge Clinical Impression: High blood pressure Qualifiers: Hypertension type: unspecified Qualified Code(s): I10 - Essential (primary) hypertension Condition: Stable Disposition: HOME, SELF-CARE Additional Instructions: You were seen today for elevated blood pressure at home. You are monitored by a hogshead hand and your [employer] for post delivery preeclampsia. You state you are doing your orthostatic vital signs and then you became very anxious IV started repeated every 10 minutes. Stated blood pressure started going up the more you took your blood pressure suddenly became very concerned and your pulse started going up. He became very anxious and came to the emergency room. I have given you written reports of your labs and your chest x-ray. Blood pressure was not an alarming rate when I checked it manually at that we did the blood pressure on the machine. Your vital signs have been stable throughout your visit. These call your hogshead hand on Saturday let him know what happened today and give him the labs and x-ray that were completed. He can review where notes at the hospital. Continue taking your medications as prescribed. Please when you do your orthostatic blood pressures do not continue to repeat it after you have done the levels that you need to write audiobook because when you become anxious the blood pressure will be higher. FOLLOW-UP CARE: If you have been referred to a physician for follow-up care, call the [facility] office for an appointment as you were instructed or within the next two days. If you experience worsening or a significant change in your symptoms, notify the physician immediately or return to the Emergency Department at any time for re-evaluation. Referrals: [facility] [Provider Group] - Follow up as needed JM LUA MD [ACTIVE PROVISIONAL STAFF] - Follow up as needed
[2020-07-16 02:45] VITALS: BP 121/96
== END 2020-07-16 02:46 | disposition home or self-care (01) ==
LOC: ER 18:12
DX: I10 Essential (primary) hypertension (principal); R00.0 Tachycardia, unspecified; Z79.899 Other long term (current) drug therapy; Z88.1 Allergy status to other antibiotic agents; Z88.8 Allergy status to other drugs, medicaments and biological substances; Z88.2 Allergy status to sulfonamides
CPT/HCPCS: 36415; 71046; 80053; 81001; 84443; 84484; 85025; 93005; 93010; 99285